=== PATIENT | female | born 1965 | race Caucasian/White ===

== ENCOUNTER 2023-09-22 11:19 | Outpatient (CLI) | payer OTHER, SELFPAY | END 2023-09-22 11:20 | disposition home or self-care (01) | LOC: AMB 10-04 08:23 | PROVIDERS: Visit Provider Emergency Medicine | DX: F10.129 Alcohol abuse with intoxication, unspecified (principal) ==

== ENCOUNTER 2024-11-28 14:54 | Outpatient (CLI) | payer OTHER, SELFPAY | END 2024-11-28 14:55 | disposition home or self-care (01) | PROVIDERS: Visit Provider Internal Medicine | DX: F10.129 Alcohol abuse with intoxication, unspecified (principal); R04.2 Hemoptysis | CPT/HCPCS: A0425; A0427 ==